=== PATIENT | male | born 1970 | race Caucasian/White ===

== ENCOUNTER 2018-09-11 09:49 | Inpatient (IN) | payer OTHER, SELFPAY ==
[2018-09-11] VITALS (16 sets, daily range): BP systolic 123–182; BP diastolic 60–100; PULSE 80–100; RESP 11–20; TEMP 36.9–39.2; O2SAT 94–98; BMI 34.4
--- NOTE | 2018-09-11 | DI.RAD.S_ITS ---
PROCEDURE: XR CHOLANGIOGRAM OPERATIVE INDICATIONS: Sepsis COMPARISON: [facility], US, US ABDOMEN COMPLETE, 09/11/2018, 10:18. FINDINGS: Biliary ducts: The surgeon injected contrast into the biliary ducts after cannulation of the cystic duct stump. Visualized intra- and extrahepatic bile ducts are normal in caliber, without strictures. No intraluminal filling defects to suggest retained ductal stones or sludge. No evidence for iatrogenic ductal injury. Duodenum: Contrast flows promptly through the sphincter of Oddi into the duodenum, which appears normal in caliber. IMPRESSION: Normal intraoperative cholangiogram. Dictated by: Denise De Jesus M.D. on 09/12/2018 at 9:00 Approved by: Denise De Jesus M.D. on 09/12/2018 at 9:01
--- NOTE | 2018-09-11 | PATH_ITS ---
[facility] Accession Number: [id number] . 01 Material submitted: . gallbladder - GALLBLADDER AND CONTENTS . 01 Clinical history: . ABD. PAIN . 02 Diagnosis: Gallbladder, Cholecystectomy: Chronic cholecystitis with cholelithiasis. No evidence of dysplasia or malignancy. MRV/09/16/2018 . 02 Electronically signed: . Mikayla Villegas MD, Pathologist NPI- [id number] . 01 Gross description: . Received in formalin, labeled gallbladder + contents, is an opened gallbladder (length-7.4 cm, diameter-3.8 cm) with andre-mcnamara smooth shiny serosa and a patent cystic duct. No lymph nodes are identified. The lumen is void of contents. The mucosa is mcnamara, smooth and flat. The wall is up to 0.1 cm thick. No nodules, masses or lesions are identified. Also submitted are multiple green smooth shiny calculi fragments (4.2 x 3.0 x 1.0 cm in aggregate) with ángela cut surfaces. Section code: (A1) cystic duct resection margin and two serial sections from the body; (A2) two longitudinal sections from the fundus. ([id number]) /MRV . 02 Pathologist provided ICD-10: K80.60 . 02 CPT . 828039 Performed at: 01 [facility] [address] [place] [address], [place], [place] [id number] MD Rey Bean MD Phone: [phone] Performed at: 02 [facility] [address] [place], [place] [id number] MD Mikayla Villegas MD Phone: [phone]
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
--- NOTE | 2018-09-11 10:02 | DI.US.S_ITS ---
PROCEDURE: US ABDOMEN COMPLETE INDICATIONS: RUQ PAIN EVAL FOR GB PATHOLOGY TECHNIQUE: Real-time scanning was performed of the abdominal and retroperitoneal organs, with image documentation. COMPARISON: None. FINDINGS: Liver: Liver is normal in size and demonstrates diffuse increased echotexture. Gallbladder: There are gallstones. A 1.6 cm gallstone is noted lodged in the gallbladder neck. The gallbladder wall is thickened measuring 5.6 cm. There is trace pericholecystic fluid or sonographic Akbar's sign. Biliary ducts: Intrahepatic bile ducts are non-dilated. Extrahepatic bile duct caliber measures 9.1 mm. Normal is 6-7 mm or less in diameter, or 10 mm or less post-cholecystectomy. Pancreas: Visualized portions of the pancreas are sonographically normal. Spleen: Spleen is normal in size and homogeneous in echotexture. Kidneys: Kidneys are normal in size and echotexture. Right kidney measures 11.1 cm long; left kidney measures 13.2 cm long. No hydronephrosis or nephrolithiasis. No solid masses. Aorta: Visualized aorta is normal in caliber at less than 3 cm. Iliacs: Proximal common iliac arteries are no visualized. IVC: Intrahepatic inferior vena cava is patent. Miscellaneous: No free abdominal fluid. IMPRESSION: 1. The ultrasound findings are compatible with acute calculus cholecystitis. 2. Dilated common bile duct. Recommend correlation with serum bilirubin for biliary obstruction. 3. Diffusely increased hepatic echotexture. This finding is most likely secondary to hepatic fatty infiltration although other hepatocellular disease may have a similar appearance. Recommend clinical correlation. Dictated by: Denise De Jesus M.D. on 09/11/2018 at 10:49 Approved by: Denise De Jesus M.D. on 09/11/2018 at 10:52
[2018-09-11] MEDS: MORPHINE 4 MG/ML INJ IV ×2 (10:13→17:48)
[2018-09-11 10:17] LABS: Add Manual Diff / Slide Review NO; Basophils Absolute Auto 100 /uL (0-100); Basophils Percent Auto 0.6 % (0-2); Eosinophils Absolute Auto 100 /uL (0-450); Eosinophils Percent Auto 0.8 % (2-4); Hematocrit 47.7 % (41-53); Lymphocytes Absolute Auto 1700 /uL (1100-4500); Lymphocytes Percent Auto 16.1 % (25-40); Mean Corpuscular HGB Conc 35.7 % (30-36); Mean Corpuscular Hemoglobin 36.2 PG (26-34); Mean Corpuscular Volume 101.3 fL (80-100); Monocytes Absolute Auto 600 /uL (0-900); Monocytes Percent Auto 5.5 % (3-14); Neutrophils Absolute Auto 8200 /uL (1500-7000); Platelet Count 221 X10^3/uL (150-400); Red Blood Cell Count 4.71 X10^6/uL (4.5-5.9); Red Cell Distribution Width 12.9 % (11.6-14.8); White Blood Cell Count 10.6 X10^3/uL (4.5-11.0)
[2018-09-11 10:32] LABS: Alanine Aminotransferase 43 IU/L (21-72); Albumin 4.4 g/dL (3.5-5.0); Albumin Globulin Ratio 1.3 (1.0-2.8); Alkaline Phosphatase 94 U/L (38-126); Aspartate Aminotransferase 50 IU/L (17-59); Bilirubin Total 0.7 mg/dL (0.2-1.3); Blood Urea Nitrogen 8 mg/dL (9-20); Calcium 9.7 mg/dL (8.4-10.2); Carbon Dioxide 28 mmol/L (22-32); Chloride 102 mmol/L (98-107); Estimated Glomerular Filt Rate > 60.0 mL/min (>60); Globulin 3.4 g/dL (1.7-4.1); Glucose 125 mg/dL (70-100); HEMOLYSIS < 15 (0-50); Lipase 109 U/L (23-300); Potassium 3.9 mmol/L (3.4-5.1); Sodium 140 mmol/L (137-145); Total Protein 7.8 g/dL (6.3-8.2)
[2018-09-11] MEDS: OXYCODONE/ACETAMINOPHEN 5/325 TABLET 1 TAB PO (11:47)
[2018-09-11] MEDS: QUETIAPINE 25 MG TABLET PO (13:46)
[2018-09-11] MEDS: MORPHINE 5 MG/ML INJ 4 MG IV (14:13)
[2018-09-11] MEDS: metroNIDAZOLE 500 MG/100 ML PIGGYBACK 100 MG IV (16:32)
[2018-09-11] MEDS: LACTATED RINGERS 1,000 ML 42 ML IV ×2 (16:36→21:46)
[2018-09-11] MEDS: CEFTRIAXONE 2 GM/50 ML FROZ.PIGGY IV (17:59)
[2018-09-11 18:03] LABS: Bacteria Urine None Seen
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
[2018-09-11 18:07] LABS: Appearance Urine UA CLEAR; Bilirubin Urine UA NEGATIVE (NEGATIVE); Color Urine UA YELLOW; Glucose Urine UA NEGATIVE (Negative); Ketones Urine UA NEGATIVE (NEGATIVE); Leukocyte Esterase Urine UA NEGATIVE (NEGATIVE); Nitrite Urine UA NEGATIVE (Negative); Occult Blood Urine UA TRACE-INTACT (Negative); Protein Urine UA NEGATIVE (Negative); Urobilinogen Urine UA 0.2 E.U./dL (0.2); pH Urine UA 6.5 (4.5-8.0)
[2018-09-11 18:18] LABS: Culture Indicated Urine Cult Not Indicated; Mucus Urine 1+ (Negative); RBC Urine 0-1/HPF (0-5/HPF); Squamous Epithelial Cell Urine 0-1 /HPF (0-5/HPF); WBC Urine 0-1/HPF (0-5/HPF)
[2018-09-11] MEDS: ACETAMINOPHEN 325 MG TABLET 650 MG PO (18:24)
--- NOTE | 2018-09-11 18:43 | PC.NURSE ---
pt A&OX3. 95%RA. pt had a temp 100.6 F, provider ordered not to give tylenol. recheck temp 102.5 F, provider aware and ordered to give tylenol PO. Pt reports 3/10 pain. 2mg of morphine given. Independent to the BR. abx infusing. call light in reach.
[2018-09-11 19:02] LABS: Prothrombin Time 11.9 SECONDS (10.1-12.7)
--- NOTE | 2018-09-11 21:01 | SUR.OPER ---
Supine on padded OR bed, head on pillow, safety belt at thigh, left arm padded and tucked at side. Right arm secured on padded arm oard <90 degrees abduction. Legs uncrossed. Padded footboard in place. Tape over blanket to secure lower legs.
[2018-09-11] MEDS: BUPIVACAINE 0.25% W/ EPI 30 ML VIAL INJ (21:17)
[2018-09-11] MEDS: IOPAMIDOL 50 ML VIAL INJ (21:18)
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
[2018-09-12] VITALS (13 sets, daily range): BP systolic 123–153; BP diastolic 55–90; PULSE 82–98; RESP 16–20; TEMP 36.7–38.2; O2SAT 94–98
--- NOTE | 2018-09-12 00:19 | PC.NURSE ---
Addendum entered by Leonora Williamson R.N. 09/12/18 02:45: Patient is alert and oriented. Breath sounds diminished but CTA with RA sat of 94%; hx of smoking. Provided incentive spirometer and instructed in use. Demonstrated understanding and was only able to get to 750. HRR. Denies nausea. BT present but denies flatus as yet. Discussed need to urinate and patient reports family assisted him to bathroom shortly after return from surgery and he voided a large amount; instructed to use urinal from now on so output can be measured. Able to turn himself in bed. Has some intermittent tingling in fingertips which is chronic. SCD's applied as per order. Fall risk score is low. Continues to deny pain. Original Note: Returned to room 215 from surgery; family in room. Patient awake and alert. Taking ice chips. Denies pain. Denies nausea. 3 lap incisions dermabonded with no signs of infection. No IVF ordered and verified with INVESTMENT ADVISORDangelo. Had catheter in surgery and was removed immediately after surgery with no void as yet. Temp slightly elevated at 99.7 and BP elevated at 153/55.
[2018-09-12] MEDS: ACETAMINOPHEN 325 MG TABLET 650 MG PO ×3 (00:31→17:59)
[2018-09-12] MEDS: metroNIDAZOLE 500 MG/100 ML PIGGYBACK 100 MG IV ×3 (00:31→16:41)
[2018-09-12] MEDS: LACTATED RINGERS 1,000 ML 75 ML IV ×2 (00:31→15:09)
[2018-09-12 08:40] LABS: Add Manual Diff / Slide Review NO; Basophils Absolute Auto 0 /uL (0-100); Basophils Percent Auto 0.4 % (0-2); Eosinophils Absolute Auto 0 /uL (0-450); Hematocrit 44.2 % (41-53); Hemoglobin 15.4 g/dL (13.5-17.5); Lymphocytes Absolute Auto 600 /uL (1100-4500); Lymphocytes Percent Auto 5.4 % (25-40); Mean Corpuscular HGB Conc 34.9 % (30-36); Mean Corpuscular Hemoglobin 35.4 PG (26-34); Mean Corpuscular Volume 101.4 fL (80-100); Monocytes Absolute Auto 700 /uL (0-900); Monocytes Percent Auto 6.7 % (3-14); Neutrophils Absolute Auto 9700 /uL (1500-7000); Neutrophils Percent Auto 87.5 % (50-75); Platelet Count 170 X10^3/uL (150-400); Red Blood Cell Count 4.35 X10^6/uL (4.5-5.9); Red Cell Distribution Width 12.9 % (11.6-14.8); White Blood Cell Count 11.1 X10^3/uL (4.5-11.0)
[2018-09-12] MEDS: OXYCODONE IR 5 MG TABLET PO (08:56)
[2018-09-12] MEDS: LACTOBACILLUS ACIDOPHILUS TABLET 1 EACH PO ×3 (08:56→17:59)
[2018-09-12] MEDS: DOCUSATE 100 MG CAPSULE PO (08:57)
[2018-09-12 09:04] LABS: BUN Creatinine Ratio 12.5 (6-22); Blood Urea Nitrogen 10 mg/dL (9-20); Calcium 9.3 mg/dL (8.4-10.2); Carbon Dioxide 27 mmol/L (22-32); Chloride 102 mmol/L (98-107); Estimated Glomerular Filt Rate > 60.0 mL/min (>60); Glucose 171 mg/dL (70-100); HEMOLYSIS < 15 (0-50); Magnesium 1.8 mg/dL (1.6-2.3); Potassium 3.8 mmol/L (3.4-5.1); Sodium 138 mmol/L (137-145)
--- NOTE | 2018-09-12 09:18 | CM.DANOTE ---
DCP: Case received, EMR reviewed and met with patient. Introduced self and role. Obtained baseline health history from patient. DCP template assessment completed with information currently available. Patient is a 47 year old male who admitted on 09-11 to the care of the surgical team. PCP: Dr. Santana. Payer: confirmed: Out of [facility]. Patient came to hospital secondary to abdominal pain. Patient holds diagnosis of acute cholecystitis with sepsis. He had a laparoscopic choleystectomy done yesterday. Met with patient in his room. Alert and oriented. Lives in [place] with his spouse, Iliana. He is currently employed at [employer]. He is independent. Verified with patient that his spouse will be available for any needs he may have when he goes home. P: DCP to continue to follow closely. Patient should be able to return home when he is medically stable. Tatiana Martinez RN/Installations Inspector
--- NOTE | 2018-09-12 09:47 | PC.NURSE ---
Addendum entered by Swati Hensley R.N. 09/12/18 14:02: PAIN/MS - pt up ambul in room, pain well managed by earlier tylenol. Original Note: AM NOTE - alert, states mild incisional discomfort 3 on scale 0/10, no nausea, bt hypo, later am did pass flatus, phuc full liq diet, ra 96%, bonded lap sites w/o redness, small area bruising, hx larger and small hernias r+L quadrants, old scarring mid abd area, 1+ pedal edema, hr reg 68, up standby br, ambul in room, dangle position, after breakfast given 5mg po oxycodone for discomfort.
--- NOTE | 2018-09-12 17:49 | P.PN_ITS ---
Subjective Date Patient Seen: 09/12/18 Time Patient Seen: 17:47 Interval history: feeling very well after acute cholecystectomy yesterday. tolerated diet ambulated not pain Exam Vital Signs (past 8 hours): - 09/12/18 13:00 09/12/18 14:07 09/12/18 15:00 Temperature 100.1 F H 99.4 F Pulse Rate 90 Respiratory Rate 16 Blood Pressure 147/89 H Pulse Oximetry 95 96 09/12/18 16:16 Temperature 100.7 F H Pulse Rate 92 H Respiratory Rate 20 Blood Pressure 140/84 Pulse Oximetry 98 Oxygen Delivery Method Room Air Oxygen Flow Rate 0 Narrative Exam Narrative: Well up walking abd soft nontender nondistended on RA Objective Labs Result Diagrams: 09/12/18 08:10 09/12/18 08:10 Labs: Laboratory Results - last 24 hr 09/11/18 09/11/18 09/12/18 10:09 18:02 08:10 WBC 11.1 H RBC 4.35 L Hgb 15.4 Hct 44.2 MCV 101.4 H MCH 35.4 H MCHC 34.9 RDW 12.9 Plt Count 170 Neut % (Auto) 87.5 H Lymph % (Auto) 5.4 L [place] % (Auto) 6.7 Eos % (Auto) 0.0 L Baso % (Auto) 0.4 Neut # (Auto) 9700 H Lymph # (Auto) 600 L [place] # (Auto) 700 Eos # (Auto) 0 Baso # (Auto) 0 PT 11.9 INR 1.0 Sodium Potassium Chloride Carbon Dioxide BUN Creatinine Estimated GFR BUN/Creatinine Ratio Glucose Calcium Magnesium Urine Color Yellow Urine Appearance Clear Urine pH 6.5 Ur Specific [place] 1.020 Urine Protein Negative Urine Glucose (UA) Negative Urine Ketones Negative Urine Occult Blood Trace-intact Urine Nitrate Negative Urine Bilirubin Negative Urine Urobilinogen 0.2 Ur Leukocyte Esterase Negative Urine RBC 0-1/hpf Urine WBC 0-1/hpf Ur Squamous Epith Cells 0-1 /hpf Urine Bacteria None seen Urine Mucus 1+ H Ur Culture Indicated? Cult not indicated 09/12/18 08:10 WBC RBC Hgb Hct MCV MCH MCHC RDW Plt Count Neut % (Auto) Lymph % (Auto) [place] % (Auto) Eos % (Auto) Baso % (Auto) Neut # (Auto) Lymph # (Auto) [place] # (Auto) Eos # (Auto) Baso # (Auto) PT INR Sodium 138 Potassium 3.8 Chloride 102 Carbon Dioxide 27 BUN 10 Creatinine 0.80 Estimated GFR > 60.0 BUN/Creatinine Ratio 12.5 Glucose 171 H Calcium 9.3 Magnesium 1.8 Urine Color Urine Appearance Urine pH Ur Specific [place] Urine Protein Urine Glucose (UA) Urine Ketones Urine Occult Blood Urine Nitrate Urine Bilirubin Urine Urobilinogen Ur Leukocyte Esterase Urine RBC Urine WBC Ur Squamous Epith Cells Urine Bacteria Urine Mucus Ur Culture Indicated? Assessment & Plan Assessment & Plan narrative: POD1 after lap nathaly for cholecystitis. IOC clean Plan Home 5 days abx due to fevers Quality VTE Deep Vein Thrombosis/Pulmonary Embolism Present on Admission: No
[2018-09-12] MEDS: CEFTRIAXONE 2 GM/50 ML FROZ.PIGGY IV (17:58)
== END 2018-09-12 19:16 | disposition home or self-care (01) | DRG 417 ==
LOC: ED 13:46 → AC 14:05
PROVIDERS: Admitting Provider Surgery; Emergency Provider Emergency Medicine; PCP Family Medicine; Visit Provider Surgery
DX: K80.00 Calculus of gallbladder with acute cholecystitis without obstruction (principal); A41.9 Sepsis, unspecified organism; F17.210 Nicotine dependence, cigarettes, uncomplicated
CPT/HCPCS: 36415; 36591; 47563; 74300; 76000; 76700; 80048; 80053; 81001; 83690; 83735; 85025; 85610; 86850; 86900; 86901; 93005; 96374; 96376; 99222; 99283; 99284; 99406; J0330; J0696; J1100; J2250; J2270; J2405; J2704; J3010

== ENCOUNTER 2025-01-13 06:58 | Inpatient (IN) | payer OTHER, SELFPAY ==
[2018-09-11 14:07] VITALS: BMI 34.4
[2025-01-13] VITALS (43 sets, daily range): BP systolic 112–210; BP diastolic 55–105; PULSE 79–120; RESP 8–29; TEMP 31–36.9; O2SAT 89–100; BMI 32.1
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
[2025-01-13 07:23] LABS: Add Manual Diff / Slide Review NO; Hematocrit 49.3 % (41-53); Hemoglobin 16.8 g/dL (13.5-17.5); Lymphocytes Absolute Auto 1500 /uL (1100-4500); Mean Corpuscular HGB Conc 34.0 % (30-36); Mean Corpuscular Hemoglobin 32.1 PG (26-34); Mean Corpuscular Volume 94.6 fL (80-100); Platelet Count 210 X10^3/uL (150-400)
[2025-01-13] MEDS: ONDANSETRON 4 MG/2 ML INJ IV (07:27)
[2025-01-13 07:31] LABS: Alanine Aminotransferase 37 IU/L (<50); Albumin 5.0 g/dL (3.5-5.0); Albumin Globulin Ratio 1.2 (1.0-2.8); Alkaline Phosphatase 94 U/L (38-126); Blood Urea Nitrogen 5 mg/dL (9-20); Calcium 9.5 mg/dL (8.4-10.2); Carbon Dioxide 25 mmol/L (22-32); Chloride 99 mmol/L (98-107); Estimated Glomerular Filt Rate > 60 mL/min (>60); Globulin 4.2 g/dL (1.7-4.1); Glucose 198 mg/dL (70-99); HEMOLYSIS 68 (0-50); Lactate (Lactic Acid) 3.6 mmol/L (0.7-2.1); Lipase 155 U/L (23-300); Potassium 3.8 mmol/L (3.4-5.1); Sodium 138 mmol/L (137-145); Total Protein 9.2 g/dL (6.3-8.2)
[2025-01-13] MEDS: SODIUM CHLORIDE 0.9% 1,000 ML 1000 ML IV ×2 (08:01→08:41)
[2025-01-13 08:23] LABS: Appearance Urine UA CLEAR; Bilirubin Urine UA NEGATIVE (NEGATIVE); Color Urine UA YELLOW; Glucose Urine UA TRACE g/dL (Negative); Ketones Urine UA TRACE (NEGATIVE); Leukocyte Esterase Urine UA NEGATIVE (NEGATIVE); Nitrite Urine UA POSITIVE (Negative); Occult Blood Urine UA NEGATIVE (Negative); Protein Urine UA 2+ (Negative); Specific Gravity Urine UA 1.015 (1.000-1.035); Urobilinogen Urine UA 1.0 E.U./dL (0.2); pH Urine UA 7.0 (4.5-8.0)
[2025-01-13 08:31] LABS: Culture Indicated Urine Specimen Cultured
[2025-01-13 08:54] LABS: Reflexed Lactate in 2 Hours Y
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
[2025-01-13 09:32] LABS: Lactate 2HR (Lactic Acid Rflx) 2.6 mmol/L (0.7-2.1)
[2025-01-13] MEDS: SODIUM CHLORIDE 0.9% 1,000 ML 125 ML IV ×2 (09:43→12:27)
[2025-01-13] MEDS: MORPHINE 4 MG/ML INJ IV ×4 (09:44→20:04)
--- NOTE | 2025-01-13 10:18 | DI.RAD.S_ITS ---
PROCEDURE: XR CHEST 1V INDICATIONS: NG tube placement TECHNIQUE: One view of the chest was acquired. COMPARISON: None. FINDINGS: Surgical changes and devices: NG tube tip is below the right hemidiaphragm and is in the expected location of distal stomach lumen. Surgical clips are seen in gallbladder fossa. Lungs and pleura: Lungs are clear. No pleural effusions or pneumothorax. Mediastinum: Mediastinal contours appear normal. Heart size is enlarged. Bones and chest wall: No suspicious bony lesions. Overlying soft tissues appear unremarkable. IMPRESSION: NG tube tip is in distal stomach lumen below the right hemidiaphragm. No focal infiltrate, pleural effusion or pneumothorax. Dictated by: Stuart Montez M.D. on 01/13/2025 at 10:47 Approved by: Stuart Montez M.D. on 01/13/2025 at 10:48
--- NOTE | 2025-01-13 11:47 | PC.NURSE ---
NS running at 125ml/hr at time of d/c to acute care floor
[2025-01-13 11:59] LABS: Lactate (Lactic Acid) 2.5 mmol/L (0.7-2.1)
--- NOTE | 2025-01-13 13:16 | PC.NURSE ---
Patient arrived from ED at 1200 pm. He has NGT in place. He is able to stand and walk several steps to transfer to bed. He reports pain 8/10 to abdomen is 8/10 pressure pain. Like it's about to pop out. MD Prieto notified for increased pain, BP also increased and per orders patient given 1 mg dilauded. Patient NGT draining bile colored liquid. He denies epigasatric discomfort or nausea. Face is flushed, slight diaphoretic. He states I've just been in pain so long.
[2025-01-13 13:27] LABS: Reflexed Lactate in 2 Hours Y
--- NOTE | 2025-01-13 13:56 | PC.NURSE ---
Patient transported to pre op area via bed with NGT
[2025-01-13 14:19] LABS: Lactate 2HR (Lactic Acid Rflx) 3.4 mmol/L (0.7-2.1)
--- NOTE | 2025-01-13 14:33 | EKG_ITS ---
[facility] [address] [place] [address] Test Date: 2025-01-13 Pat Name: Barrie Alexandra Department: [facility] Room: 210 Gender: Male Gate Tender: : 1970 Requested By: Order Number: [id number] Reading MD: Deacon Elder MD Measurements Intervals Neal Rate: 98 P: 52 VA: 164 QRS: -54 QRSD: 106 T: 22 QT: 382 QTc: 487 Interpretive Statements Normal sinus rhythm Left anterior fascicular block Minimal voltage criteria for LVH, may be normal variant ( Brent product ) Prolonged QT Electronically Signed On 01-13-2025 16:10:27 PDT by Deacon Elder MD
[2025-01-13] MEDS: LACTATED RINGERS 1,000 ML 42 ML IV (14:39)
[2025-01-13] MEDS: ACETAMINOPHEN IV 1,000 MG/100 ML VIAL 400 MG IV (14:55)
[2025-01-13] MEDS: BUPivacaine 0.25% W/ EPI (PF) 30 ML VIAL 60 ML INJ (16:16)
--- NOTE | 2025-01-13 16:17 | SUR.OPER ---
Supine on padded OR bed, head on pillow, arms secured on padded arm boards at <90 degrees abduction, legs uncrossed, safety belt at thigh, tape over blanket over lower legs. SURGEON CONFIRMED POSITIONING.
--- NOTE | 2025-01-13 16:44 | P.OP_ITS ---
Operative Date/Time/Diagnoses Date of procedure: 01/13/25 Time of procedure: 16:44 Pre-op diagnosis: Incisional hernia, incarcerated, with obstruction Post-op diagnosis: same Procedure & Clinicians Procedure: Open incisional ventral hernia repair, primary repair, 10Fr Cooper channel drain RLQ Same procedure(s) as scheduled: Yes Indications: 54yo M presented to ED with incarcerated incisional hernia containing small bowel with obstruction in RLQ. Surgeon: Adan Prieto Assisted?: Yes Electronic Resources Librarian: Rashard Glasgow Anesthesia Type: General Operative Notes Findings: Small bowel and large amount of omentum incarcerated into large hernia sac. Bowel viable, no resection needed. Closure Type: primary Specimen(s): none sent Prosthetic devices, grafts, tissues, transplants, or devices: RLQ 10Fr Cooper channel drain Applied: drain(s) Estimated Blood Loss (mL): 50 Blood products transfused: none Procedure in detail: After informed consent and satisfactory general endotracheal anesthesia, the abdomen was prepped and draped in the usual sterile manner. The patient received appropriate preoperative antibiotics and DVT prophylaxis. A Morrow catheter was placed to monitor urine output. Surgical time-out was performed with all team members in agreement. The skin incision was made with a 15 blade overlying the large hernia in the right lower quadrant in a transverse manner. We then continued through the dermis using Adson's with teeth and electrocautery on the cut setting. We then used a Angela clamp to elevate the subcutaneous tissue off of the hernia sac and divided this with cautery with excellent hemostasis. Once the hernia sac was reached we opened it between 2 hemostats and continued the hernia sac dissection with cautery over a finger to protect the underlying bowel. The bowel was edematous but not ischemic. We were able to mobilize all of the omentum and the small bowel away from the adhesions in the sac and reduce it completely. There was a significant portion of omentum that was adherent to the hernia sac and this was divided with the LigaSure device and discarded. There was no suspicious mass or other finding in the ome ntum. The large hernia sac was excised at the fascial level using the LigaSure as well with excellent hemostasis. The resulting fascial defect measured 12 cm in length. We had to extend it medially just to be able to reduce the bowel without injury. I did not want to place an intraperitoneal onlay mesh because the edematous bowel would have been in close proximity and I was concerned for any bowel mesh interaction for fistula or bowel obstruction. The hernia defect traversed the right lateral lower abdominal muscle layers and the rectus and was not amenable to a preperitoneal mesh and I was concerned for potential infection. I felt that a large onlay patch on top of the muscle would not reduce the high recurrence rate and would get infected as this large space required a drain for the inevitable seroma. In my judgment the recurrence rate is high and mesh is best preserved for a recurrent repair rather than have a recurrence complicated by mesh, particularly infected mesh. With this, the large fascial defect was closed using #1 Ethibond suture in an interrupted [id number] manner. I then tested the fascial closure with the tip of a Angela clamp and any area of fascia that would allow the tip of the Angela was reinforced with additional #1 Ethibond suture interrupted. This closed the fascia nicely. The fascia was very strong and I felt that this was the best repair that we could give him given the circumstances. With this a 10 Italian Cooper channel drain was exited through the right lower quadrant and secured to the skin with a 2-0 nylon suture. I then closed the space with 3-0 Vicryl interrupted. The skin incision was closed using skin clips. A dry sterile dressing was applied. The estimated blood loss was 50 cc. The instrument sponge and needle counts were all correct x2. The patient tolerated the procedure well and was extubated in the operating room and transported to the recovery area in stable condition. Complications: none Post-operative Condition: stable Disposition: PACU Plan for aftercare: PACU then perkins
--- NOTE | 2025-01-13 18:56 | PC.ADMIT ---
1903 Admission Note: Pt arrived to room 226 with WILDLIFE CONSERVATION PROFESSOR and RT at approximately 1850. A&Ox3, unsure of day of week. RA 90%, placed on 2L NC by RT. Denies pain. Dressing to right lower abdomen aquacell with shadow drainage, CRISTINA drain to right side. HR 110's, BP WDL. Oriented to room and call light. Care ongoing. The patient,Barrie Alexandra,54 y/o, was given written information regarding hospital policies, unit procedures and contact persons. Patient's smoking status: Current every day smoker. Vital Signs - 8 hr 01/13/25 14:13 01/13/25 17:27 01/13/25 17:33 Temperature 98.4 F 97.5 F L Pulse Rate 87 120 H 118 H Respiratory Rate 18 15 14 Blood Pressure 185/92 H 165/84 H 148/79 H Pulse Oximetry 94 97 98 Oxygen Delivery Method Room Air Simple Mask BiPAP Fraction of Inspired Oxygen 01/13/25 17:40 01/13/25 17:44 01/13/25 17:47 Temperature Pulse Rate 114 H 109 H Respiratory Rate 13 12 Blood Pressure 128/71 126/71 126/71 Pulse Oximetry 97 97 Oxygen Delivery Method BiPAP BiPAP Fraction of Inspired Oxygen 40 01/13/25 17:52 01/13/25 17:58 01/13/25 18:05 Temperature Pulse Rate 110 H 107 H 104 H Respiratory Rate 10 L 11 L 9 L Blood Pressure 133/73 119/55 L 115/64 Pulse Oximetry 97 97 98 Oxygen Delivery Method BiPAP BiPAP BiPAP Fraction of Inspired Oxygen 01/13/25 18:10 01/13/25 18:18 01/13/25 18:25 Temperature Pulse Rate 113 H 109 H 112 H Respiratory Rate 12 11 L 11 L Blood Pressure 119/71 114/67 119/62 Pulse Oximetry 98 97 98 Oxygen Delivery Method BiPAP BiPAP BiPAP Fraction of Inspired Oxygen 01/13/25 18:30 01/13/25 18:40 Temperature Pulse Rate 112 H 112 H Respiratory Rate 11 L 11 L Blood Pressure 121/70 121/70 Pulse Oximetry 98 94 Oxygen Delivery Method Room Air Fraction of Inspired Oxygen
[2025-01-13] MEDS: LACTATED RINGERS 1,000 ML 120 ML IV (20:13)
[2025-01-14] MEDS: MORPHINE 4 MG/ML INJ IV ×3 (00:08→20:00)
[2025-01-14] MEDS: LACTATED RINGERS 1,000 ML 120 ML IV (04:45)
--- NOTE | 2025-01-14 05:52 | PM.PN.IH.1 ---
Subjective Subjective Date Patient Seen: 01/14/25 Time Patient Seen: 05:52 Interval history: Stable overnight POD#1 RLQ hernia repair NG, RLQ drain with minimal output overnight Denies n/v Exam Vital Signs (past 8 hours): - 01/13/25 22:00 01/13/25 22:00 01/13/25 22:28 Pulse Rate 106 H 107 H Respiratory Rate 17 16 Blood Pressure 112/63 Pulse Oximetry 94 93 01/13/25 22:30 Pulse Rate Respiratory Rate Blood Pressure 114/63 Pulse Oximetry Fraction of Inspired Oxygen 40 Oxygen Delivery Method Nasal Cannula Oxygen Flow Rate 2 Const General: comfortable Orientation: alert and oriented x3 Resp Effort & Inspection: normal respiratory effort and able to speak in complete sentences Cardio Rate: regular rate GI Other: ABD: binder, dressing in place, tenderness appropriate for postop, RLQ drain serosang, NG with non-bloody gastric contents Extrem General: no pedal edema and no calf tenderness Objective Labs 01/13/25 07:15 01/13/25 07:15 Labs: Laboratory Results - last 24 hr 01/13/25 01/13/25 01/13/25 07:05 07:15 09:02 WBC 12.7 H RBC 5.21 Hgb 16.8 Hct 49.3 MCV 94.6 MCH 32.1 MCHC 34.0 RDW 14.2 Plt Count 210 Neut % (Auto) 81.7 H Lymph % (Auto) 12.1 L [place] % (Auto) 3.1 Eos % (Auto) 0.4 L Baso % (Auto) 2.7 H Neut # (Auto) 72029 H Lymph # (Auto) 1500 [place] # (Auto) 400 Eos # (Auto) 0 Baso # (Auto) 300 H Sodium 138 Potassium 3.8 Chloride 99 Carbon Dioxide 25 BUN 5 L Creatinine 0.62 L Estimated GFR > 60 BUN/Creatinine Ratio 8.1 Glucose 198 H Lactate 3.6 H 2.6 H Calcium 9.5 Total Bilirubin 1.3 AST 52 ALT 37 Alkaline Phosphatase 94 Total Protein 9.2 H Albumin 5.0 Globulin 4.2 H Albumin/Globulin Ratio 1.2 Lipase 155 Urine Color Yellow Urine Appearance Clear Urine pH 7.0 Ur Specific [place] 1.015 Urine Protein 2+ H Urine Glucose (UA) Trace H Urine Ketones Trace H Urine Occult Blood Negative Urine Nitrate Positive H Urine Bilirubin Negative Urine Urobilinogen 1.0 Ur Leukocyte Esterase Negative Urine RBC 0-1/hpf Urine WBC 1-5/hpf Ur Squamous Epith Cells 0-1 /hpf Urine Bacteria Few (2-10) H Ur Culture Indicated? Specimen cultured Vol Urine Centrifuged 10ml (spun) 01/13/25 01/13/25 11:15 13:50 WBC RBC Hgb Hct MCV MCH MCHC RDW Plt Count Neut % (Auto) Lymph % (Auto) [place] % (Auto) Eos % (Auto) Baso % (Auto) Neut # (Auto) Lymph # (Auto) [place] # (Auto) Eos # (Auto) Baso # (Auto) Sodium Potassium Chloride Carbon Dioxide BUN Creatinine Estimated GFR BUN/Creatinine Ratio Glucose Lactate 2.5 H 3.4 H Calcium Total Bilirubin AST ALT Alkaline Phosphatase Total Protein Albumin Globulin Albumin/Globulin Ratio Lipase Urine Color Urine Appearance Urine pH Ur Specific [place] Urine Protein Urine Glucose (UA) Urine Ketones Urine Occult Blood Urine Nitrate Urine Bilirubin Urine Urobilinogen Ur Leukocyte Esterase Urine RBC Urine WBC Ur Squamous Epith Cells Urine Bacteria Ur Culture Indicated? Vol Urine Centrifuged [facility] Medical History Smoker Surgical History Hx of exploratory laparotomy Social History household members: spouse and children Smoking Status: Current every day smoker alcohol intake: current Assessment & Plan Assessment and plan (1) Incisional hernia with bowel obstruction: Status: Acute Plan POD#1 incarcerated incisional hernia repair with SBO Bowel viable D/C NGT, vincent today Start clear liquids, no carbonation Ambulate Time-Based Coding :: [TOTAL MINUTES] spent with patient and on the chart (including review of chart, obtaining history, exam, reviewing outside data, placing orders, documenting exam and treatment plan, and counseling patient) on [DATE]. PROFEE Msw Document charge(s): Yes Charge Codes Subsequent inpatient/observation care: 56120
[2025-01-14] MEDS: PANTOPRAZOLE DR 20 MG TABLET PO (06:54)
--- NOTE | 2025-01-14 16:18 | CM.DANOTE ---
DCP Assessment note brief pt is a 54yo M POD1 hernia repair. SMALL CRAFT OPERATOR reviewed EMR. per surgeon note, remove NGT tube today, dc vincent, starting clears. advance diet as tolerated. per RN doing well on advancing diet. no anticipated DCP/CM needs at this time. per chart, pt lives indep with spouse in [place]. drives. SMALL CRAFT OPERATOR unable to meet with pt today due to triaging needs. P: anticipate dc home with family support when able to tolerate regular diet. will continue to follow as needed for DCP Coordination MATTHIEU Mcdaniel Discharge Planning/Care Management CM Discharge Assessment Start: 01/13/25 08:31 Freq: Status: Active Protocol: Document 01/14/25 16:16 SL (Rec: 01/14/25 16:18 [id number]) Discharge Planning Assessment Assigned Discharge MATTHIEU Wood Shrink Pit Operator Insurance Comment [employer] dimensions DPOA/Assigned Iliana, spouse Designee Name Contact Information [phone] Advance Directives? No History Provided By Patient,Medical Record Prior Living House Arrangements Household Members spouse,children Type of Drives own vehicle transporation used prior to admit Independent with ADL Yes 's Is patient alert and Yes oriented? Discharge Plan Home Transportation Spouse Arrangement Referrals Initiated None needed Review Status In Process Please Provide Date 01/14/25 Initial DC Assessment Was Performed Next Review Type Continued Stay Review
[2025-01-14 18:54] VITALS: BP 112/74; PULSE 111; RESP 19; TEMP 35.7; O2SAT 95
[2025-01-14 19:00] VITALS: BP 150/79; PULSE 110; RESP 18; TEMP 36.1; O2SAT 96
[2025-01-15] MEDS: MORPHINE 4 MG/ML INJ IV (05:28)
[2025-01-15] MEDS: PANTOPRAZOLE DR 20 MG TABLET PO (05:36)
[2025-01-15] MEDS: DOCUSATE 100 MG CAPSULE PO (08:29)
[2025-01-15] MEDS: MAGNESIUM HYDROXIDE 30 ML UDC PO (08:29)
--- NOTE | 2025-01-15 10:06 | PM.PN.IH.1 ---
Subjective Subjective Date Patient Seen: 01/15/25 Time Patient Seen: 10:06 Interval history: POD#2 No c/o No BM Pain controlled Exam Vital Signs (past 8 hours): Fraction of Inspired Oxygen 40 Oxygen Delivery Method Nasal Cannula Oxygen Flow Rate 0 GI Other: ABD: drsg CDI, drain serosang, tenderness appropriate for postop Objective Labs 01/13/25 07:15 01/13/25 07:15 PFSH Medical History Smoker Surgical History Hx of exploratory laparotomy Social History household members: spouse and children alcohol intake: current Assessment & Plan Assessment and plan (1) Incisional hernia with bowel obstruction: Status: Acute Plan POD#2 hernia repair Tolerating clears Advance diet Continue drain Ambulate Oral pain meds Time-Based Coding :: [TOTAL MINUTES] spent with patient and on the chart (including review of chart, obtaining history, exam, reviewing outside data, placing orders, documenting exam and treatment plan, and counseling patient) on [DATE]. PROFEE Pipe Smoking Machine Offbearer Document charge(s): Yes Charge Codes Subsequent inpatient/observation care: 72079
--- NOTE | 2025-01-15 12:16 | CM.DPC ---
DCP Cont: Per Surgeon, pt's NGT removed and on full liquids and awaiting bowel tones and likely another 1-2 days before stable for discharge. MATTHIEU Tucker
[2025-01-15 15:39] VITALS: BP 137/85; PULSE 104; RESP 16; TEMP 36.2; O2SAT 95
[2025-01-16] MEDS: PANTOPRAZOLE DR 20 MG TABLET PO (06:36)
[2025-01-16 08:00] VITALS: BP 137/77; PULSE 89; RESP 18; TEMP 36.4; O2SAT 95
[2025-01-16] MEDS: DOCUSATE 100 MG CAPSULE PO (09:14)
--- NOTE | 2025-01-16 10:28 | PM.PN.IH.1 ---
Subjective Subjective Date Patient Seen: 01/16/25 Time Patient Seen: 09:40 Interval history: Patient is sitting in a bedside chair feeling better. Patient is postop day 3.. Incisional hernia. Patient is tolerating diet. No morning laboratory. Vitals: Temperature is 97.6? pulse is 89 respirations 18 BP is 137/77 SaO2 is 95% on room air. Heart regular rate and rhythm without murmurs. Lungs are clear but diminished in the bases poor inspiratory and expiratory effort poor chest wall motion noted. Abdomen is obese soft abdominal binder is noted in place incision is clear CRISTINA is in place. No masses or peritoneal signs Impression: Postop day 3. Incisional herniorrhaphy was a recurrent hernia done by Dr. Prieto. Obesity Tobacco abuse Plan: We will discuss with Dr. Prieto about discharge whether he wants the drain left in place for follow-up in the office. Patient was given instructions on lifting stairs walking driving diet bathing exercise infectious changes wound care all questions were answered the patient's satisfaction. Discharge as per Dr. Prieto recommendations. Exam Vital Signs (past 8 hours): - 01/16/25 08:00 Temperature 97.6 F Pulse Rate 89 Respiratory Rate 18 Blood Pressure 137/77 Pulse Oximetry 95 Oxygen Flow Rate 0 Fraction of Inspired Oxygen 40 Oxygen Delivery Method Nasal Cannula Oxygen Flow Rate 0 Objective Labs 01/13/25 07:15 01/13/25 07:15 [facility] Medical History Smoker Surgical History Hx of exploratory laparotomy Social History household members: spouse and children alcohol intake: current Assessment & Plan Time-Based Coding :: [TOTAL MINUTES] spent with patient and on the chart (including review of chart, obtaining history, exam, reviewing outside data, placing orders, documenting exam and treatment plan, and counseling patient) on [DATE]. PROFEE Wire Galvanizer Document charge(s): Yes
--- NOTE | 2025-01-16 10:52 | P.DS_ITS ---
History of Present Illness History of Present Illness Date Patient Seen: 01/16/25 Time Patient Seen: 09:45 Date of Onset of Symptoms: 01/13/25 Chief complaint: Lower right side stomach pain Narrative: Patient was seen in the hospital postop day 3 for a recurrent incisional herniorrhaphy done by Dr. Prieto. The patient is sitting in the chair doing well his CRISTINA was only 15 cc recorded patient is doing well and desiring to go home. Patient's drain was removed a large amount of serous fluid was discharged after removal of the CRISTINA this was covered with a bulky bandage incision is clean and dry no signs of infection or inflammation. Patient was given normal postoperative instructions on lifting stairs walking driving diet bathing exercise infectious changes wound care. All questions were answered patient's satisfaction the patient will be discharged on oral antibiotics and also hydrocodone. All questions were answered patient's satisfaction follow up in the surgical offices for staple removal in 7-10 days or return to the emergency room if any problems questions or concerns. Discharge Providers Provider Date of admission: 01/13/25 08:26 Discharge Date: 01/16/25 Discharge provider: Arnie Croft DO Exam Vital Signs (past 8 hours): - 01/16/25 08:00 Temperature 97.6 F Pulse Rate 89 Respiratory Rate 18 Blood Pressure 137/77 Pulse Oximetry 95 Oxygen Flow Rate 0 Fraction of Inspired Oxygen 40 Oxygen Delivery Method Nasal Cannula Oxygen Flow Rate 0 Objective Labs 01/13/25 07:15 01/13/25 07:15 [facility] Medical History Smoker Surgical History Hx of exploratory laparotomy Social History household members: spouse and children alcohol intake: current Discharge Plan Discharge Plan Patient Disposition: Home Provider Discharge Comment: Patient is postop day 3. Recurrent incisional hernia discharged in improved condition Discharge orders & Medications Prescriptions: New ciprofloxacin HCl [Cipro] 250 mg tablet 250 mg PO BID Qty: 20 0RF hydrocodone-acetaminophen 5-325 mg tablet 1 tab PO Q6H PRN (Reason: pain) Qty: 10 0RF Continued omeprazole 20 mg Capsule,Delayed Release(Dr/Ec) 20 mg PO DAILY Visit Report/Discharge Packet Stand Alone Forms: Patient Portal/API, Stroke Signs & Symptoms IH PROFEE Charge Codes Discharge inpatient/observation: 34703 (Postop day 3. Recurrent incisional hernia)
--- NOTE | 2025-01-16 13:22 | PC.NURSE ---
Pt discharged home at 1300, ambulated off floor in wheelchair accompanied by family and hospital staff. IV removed, discharge teaching completed including new medications, worsening symptoms and follow up appointment. Patient left the room with all belongings.
== END 2025-01-16 13:00 | disposition home or self-care (01) | DRG 355 ==
LOC: ED 08:26 → AC 08:35 → ICU 01-14 12:14 → AC 01-14 17:42
PROVIDERS: Admitting Provider Surgery; Emergency Provider Emergency Medicine; Referring Provider Emergency Medicine; Visit Provider Surgery
PROC: 0WQF0ZZ Repair Abdominal Wall, Open Approach (ICD-10-PCS; principal; 2025-01-13 15:30)
DX: K43.0 Incisional hernia with obstruction, without gangrene (principal); F17.200 Nicotine dependence, unspecified, uncomplicated; E66.9 Obesity, unspecified; N28.89 Other specified disorders of kidney and ureter; K21.9 Gastro-esophageal reflux disease without esophagitis; Z68.32 Body mass index [BMI] 32.0-32.9, adult; Z98.890 Other specified postprocedural states
CPT/HCPCS: 36415; 71045; 74177; 80053; 81001; 83605; 83690; 85025; 87040; 87086; 93005; 93010; 94660; 96365; 96375; 96376; 99284; 99285; J0131; J0330; J0696; J1100; J1171; J2272; J2405; J2704; J3010; J7030; J7050; J7120; Q9967

== ENCOUNTER → 2025-02-03 08:45 | Outpatient (CLI) | payer OTHER, SELFPAY ==
[2025-01-13 17:44] VITALS: PULSE 110; RESP 20; O2SAT 97
[2025-01-13 20:31] VITALS: BMI 32.1
--- NOTE | 2025-02-03 08:47 | DI.CT.S_ITS ---
PROCEDURE: CT ABDOMEN RENAL PROTOCOL INDICATIONS: Right renal mass TECHNIQUE: Optional 5 mm thick noncontrast images acquired from the diaphragm to the iliac crests. After the administration of intravenous contrast, 5 mm thick images again acquired from the diaphragm to the iliac crests in the arterial and urographic phases. 5 mm thick coronal and sagittal reformats were then acquired. For radiation dose reduction, the following was used: automated exposure control, adjustment of mA and/or kV according to patient size. COMPARISON: None. FINDINGS: Image quality: Diagnostic. Kidneys and Ureters: Mostly exophytic mass with some endophytic component along the lateral margin of the right kidney measuring 9.6 x 7.8 x 8.6 cm. The mass makes contact with the adjacent liver. Renal vein is widely patent. OTHER: Lower chest: Unremarkable. Liver: Cirrhosis. Contrast timing is suboptimal for detection of hepatocellular carcinoma. No large mass identified. Patent portal vein. Gallbladder: Absent. Biliary ducts: No biliary dilation. Pancreas: No ductal dilation. Spleen: Enlarged. Adrenal Glands: 2.5 cm right adrenal nodule with mixed attenuation. Additional 2.6 cm right adrenal nodule with mixed attenuation. Stomach and Bowel: Interval presumed enterotomy. There is trace soft tissue with associated punctate focus of air measuring approximately 1.9 x 1.2 cm (series 3, image 77). Peritoneum: No abnormal intraperitoneal fluid. No free air. Ventral Wall: Right lumbar hernia. Postoperative seroma in the right lower quadrant subcutaneous tissue measuring 14.5 x 5.2 cm. Abdominal Nodes: No retroperitoneal or mesenteric adenopathy by size criteria. Vessels: Aorta and inferior vena cava are normal in size. Prior EVAR. Bones: No aggressive osseous abnormality. IMPRESSION: Mostly exophytic mass off the lateral margin of the right kidney measuring 9.6 x 7.8 x 8.6 cm. Findings represent renal cell carcinoma until proven otherwise. There is soft tissue contact with the adjacent liver, but no definite invasion. No renal vein invasion. Cirrhosis. Suboptimal contrast timing for detection of the pedis other carcinoma. No large mass identified. Patent portal vein. Interval enterotomy, with trace soft tissue containing a small focus of gas in the right lower quadrant, presumably postoperative. There are a couple of right adrenal nodules measuring up to 2.6 cm, with mixed attenuation. Findings to have the appearance of benign adrenal myelolipomas, but this needs to be confirmed with MRI to exclude metastases. Dictated by: Edgard Amador M.D. on 02/03/2025 at 16:29 Approved by: Edgard Amador M.D. on 02/03/2025 at 16:35
== END ==
LOC: CT 08:46
PROVIDERS: PCP Family Medicine; Referring Provider Family Medicine; Visit Provider Family Medicine
DX: C64.1 Malignant neoplasm of right kidney, except renal pelvis (principal); N28.89 Other specified disorders of kidney and ureter; E27.9 Disorder of adrenal gland, unspecified; K45.8 Other specified abdominal hernia without obstruction or gangrene; L76.34 Postprocedural seroma of skin and subcutaneous tissue following other procedure; K74.60 Unspecified cirrhosis of liver
CPT/HCPCS: 74170; Q9967

== ENCOUNTER 2025-02-16 07:28 | Inpatient (IN) | payer OTHER, SELFPAY ==
[2025-01-13 17:44] VITALS: PULSE 110; RESP 20; O2SAT 97
[2025-01-13 20:31] VITALS: BMI 32.1
[2025-02-16] VITALS (10 sets, daily range): BP systolic 125–176; BP diastolic 84–93; PULSE 73–102; RESP 12–18; TEMP 35.8–36.6; O2SAT 92–98; BMI 31.1
--- NOTE | 2025-02-16 07:47 | ED.ABDPAIN ---
HPI - Abdominal Pain General Chief Complaint: Abdominal Pain Stated Complaint: possible bowel obstruction 2 days Time Seen by Provider: 02/16/25 07:33 Source: patient Mode of arrival: Ambulatory History of Present Illness HPI narrative: Patient here with . Complains of right lower quadrant abdominal pain/hernia since yesterday. Patient admitted here January 13 for incisional hernia with bowel obstruction. Patient has been doing well since then. His original hernia repair was 2003. Has history of cholecystectomy. Had nausea and vomiting this morning. No fever chills. No urinary complaints. No chest pain no back pain. Patient has large hernia right lower quadrant that is not reducible. Related Data Home Medications ?Medication ?Instructions ?Recorded ?Confirmed omeprazole 20 mg capsule,delayed 20 mg PO DAILY 09/11/18 02/16/25 release Allergies Allergy/AdvReac Type Severity Reaction Status Date / Time No Known Drug Allergies Allergy Verified 02/16/25 07:39 Review of Systems Review of Systems Narrative: GENERAL: Negative chills, fatigue, malaise, fever, sweats. HEENT: Negative sinus pain, ear pain, sore throat RESPIRATORY: Negative dyspnea, cough CARDIOVASCULAR: Negative chest pain, palpitations GASTROINTESTINAL: Positive diarrhea, vomiting, nausea, abdominal pain, negative GI bleed : Negative dysuria, frequency, hematuria MUSCULOSKELETAL: Negative muscle or bony pain SKIN: Negative rash, skin lesions NEUROLOGIC: Negative weakness, numbness ROS Unobtainable: All systems reviewed & are unremarkable except as noted in HPI and below Patient History Medical History Smoker Surgical History Hx of hernia repair Hx of cholecystectomy Hx of exploratory laparotomy Social History marital status: number of children: 3 household members: spouse and children Smoking Status: Former smoker Tobacco: How many years used: 22 alcohol intake: former caffeine: Yes Type(s) of exercise: none Smoking Status: Former smoker alcohol intake frequency: 3 or more drinks per day Alcohol type: beer Exam Narrative Exam Narrative: GENERAL: in no distress, not toxic not dyspneic HEAD: Normocephalic. EYES: Pupils equal round ENT: Mucous membranes moist. NECK: Trachea midline. CARDIOVASCULAR: Regular rate and rhythm RESPIRATORY: Clear to auscultation. Breath sounds equal bilaterally. No wheezes, rales, or rhonchi. GASTROINTESTINAL: Abdomen soft, large distention right lower quadrant/hernia/mass. Non reducible. Bowel sounds are present. Tender to touch right side abdomen. Surgical scars clean dry intact. BACK: No flank tenderness. EXTREMITIES: No gross deformities. NEURO: AOx4. Clear speech SKIN: Warm and dry PSYCH: Not anxious, is cooperative Initial Vital Signs Initial Vital Signs: Vital Signs Pulse Rate 101 H 02/16/25 07:33 Blood Pressure 176/93 H 02/16/25 07:33 Pulse Oximetry 95 02/16/25 07:33 Course Orders Ordered: ED Orders 02/16/25 07:45 Complete Blood Count AUTO DIFF Stat Comprehensive Metabolic Panel Stat Lipase Stat 02/16/25 07:50 CT abdomen pelvis w con Stat Acetaminophen (Acetaminophen 325 Mg Tablet) 650 mg PO Q6H PRN PRN Reason: Fever/Mild Pain (1-3) Heparin Sodium (Porcine) (Heparin 5,000 Unit/Ml Vial) 5,000 unit SUBCUT BID MENDOZA Hydromorphone HCl (Hydromorphone 1 Mg/Ml Syringe) 1 mg IV Q2HR PRN PRN Reason: Pain, Moderate (4-6) Last Admin: 02/16/25 11:25 Dose: 1 mg Documented By: Admin: 02/16/25 07:56 Dose: 1 mg Documented By: FLNyla Hydromorphone HCl (Hydromorphone Hcl 0.5 Mg/0.5 Ml Syringe) 0.5 mg IV Q2H PRN PRN Reason: Pain, Severe (7-10) Lactated Ringer's (Lactated Ringers) 1,000 mls @ 125 mls/hr IV CONT MENDOZA Last Admin: 02/16/25 10:35 Dose: 125 mls/hr Documented By: MM Ibuprofen (Ibuprofen 400 Mg Tablet) 400 mg PO Q4H PRN PRN Reason: Pain, Mild (1-3) Morphine Sulfate (Morphine 4 Mg/Ml Inj) 3 mg IV Q2HR PRN PRN Reason: Pain, Severe (7-10) Naloxone HCl (Naloxone 0.4 Mg/Ml Vial) 0.2 mg IV Q2MIN PRN PRN Reason: Opiate Reversal Ondansetron HCl (Ondansetron 4 Mg/2 Ml Inj) 4 mg IV NOW PRN PRN Reason: Nausea And Vomiting Last Admin: 02/16/25 07:56 Dose: 4 mg Documented By: TAY Ondansetron HCl (Ondansetron 4 Mg Odt) 4 mg PO NOW PRN PRN Reason: Nausea And Vomiting Ondansetron HCl (Ondansetron 4 Mg/2 Ml Inj) 4 mg IV Q8HR PRN PRN Reason: Nausea And Vomiting Discontinued Medications Sodium Chloride (Normal Saline 0.9%) 1,000 mls @ 1,000 mls/hr IV BOLUS ONE Stop: 02/16/25 08:49 Last Infusion: 02/16/25 09:15 Dose: Infused Documented By: Admin: 02/16/25 07:55 Dose: 1,000 mls/hr Documented By: TAY Midazolam HCl (Midazolam 2 Mg/2 Ml Vial) 2 mg IV NOW ONE Stop: 02/16/25 09:16 Last Admin: 02/16/25 09:24 Dose: 2 mg Documented By: MARQUEZ Vital Signs Vital signs: Vital Signs - 8 hr 02/16/25 07:33 02/16/25 07:33 02/16/25 07:36 Temperature 97.9 F Pulse Rate 101 H 102 H Respiratory Rate 12 Blood Pressure 176/93 H 125/93 H Pulse Oximetry 95 95 Oxygen Delivery Method Room Air 02/16/25 08:08 02/16/25 08:09 02/16/25 08:09 Temperature Pulse Rate 83 82 Respiratory Rate Blood Pressure 166/87 H Pulse Oximetry 94 93 Oxygen Delivery Method 02/16/25 08:30 02/16/25 08:30 02/16/25 09:00 Temperature Pulse Rate 81 Respiratory Rate Blood Pressure 150/87 H 151/84 H Pulse Oximetry 92 Oxygen Delivery Method 02/16/25 09:00 Temperature Pulse Rate 84 Respiratory Rate Blood Pressure Pulse Oximetry 93 Oxygen Delivery Method MDM - Abdominal Pain Lab Data 02/16/25 07:45 02/16/25 07:45 Labs: Lab Results 02/16/25 Range/Units 07:45 WBC 7.2 (4.5-11.0) X10^3/uL RBC 4.81 (4.5-5.9) X10^6/uL Hgb 15.0 (13.5-17.5) g/dL Hct 43.4 (41-53) % MCV 90.3 (80-100) fL MCH 31.3 (26-34) PG MCHC 34.7 (30-36) % RDW 13.9 (11.6-14.8) % Plt Count 162 (150-400) X10^3/uL Neut % (Auto) 79.1 H (50-75) % Lymph % (Auto) 17.6 L (25-40) % Larue % (Auto) 2.5 L (3-14) % Eos % (Auto) 0.2 L (2-4) % Baso % (Auto) 0.6 (0-2) % Neut # (Auto) 5700 (6422-6130) /uL Lymph # (Auto) 1300 (9493-7690) /uL [place] # (Auto) 200 (0-900) /uL Eos # (Auto) 0 (0-450) /uL Baso # (Auto) 0 (0-100) /uL Sodium 143 (137-145) mmol/L Potassium 3.4 (3.4-5.1) mmol/L Chloride 106 (98-107) mmol/L Carbon Dioxide 20 L (22-32) mmol/L BUN 6 L (9-20) mg/dL Creatinine 0.74 (0.66-1.25) mg/dL Estimated GFR > 60 (>60) mL/min BUN/Creatinine Ratio 8.1 (6-22) Glucose 150 H (70-99) mg/dL Calcium 10.0 (8.4-10.2) mg/dL Total Bilirubin 1.5 H (0.2-1.3) mg/dL AST 30 (17-59) IU/L ALT 19 (<50) IU/L Alkaline Phosphatase 92 (38-126) U/L Total Protein 8.8 H (6.3-8.2) g/dL Albumin 4.9 (3.5-5.0) g/dL Globulin 3.9 (1.7-4.1) g/dL Albumin/Globulin Ratio 1.3 (1.0-2.8) Lipase 105 (23-300) U/L Imaging Data CT scan - abdomen/pelvis: Radiologist's Impression: [address] [address] [address] Scan Report Signed Patient: Barrie Alexandra MR#: [id number] : 1970 Acct:[id number] Age/Sex: 54 / M Date of Service: 02/16/25 Loc: ED Accession Number: [id number] Procedure: CT abdomen pelvis w con Ordering Provider: Bolivar Lopez MD PROCEDURE: CT ABDOMEN PELVIS W CON INDICATIONS: Abdominal pain TECHNIQUE: After the administration of intravenous contrast, axial sections acquired from the lung bases to the pubic symphysis. Coronal and sagittal reformats were performed. For radiation dose reduction, the following was used: automated exposure control, adjustment of mA and/or kV according to patient size. COMPARISON: [facility], CT, CT ABDOMEN PELVIS W CON, 01/13/2025, 7:37. FINDINGS: Image quality: Diagnostic. Lower Chest: No significant findings. ABDOMEN: Liver: Nodular contour of the liver. No discrete mass. Gallbladder: Cholecystectomy. Biliary ducts: Compensatory dilation of the common bile duct. Pancreas: No ductal dilation. Spleen: Mild splenomegaly. Adrenal Glands: Right adrenal nodules unchanged. Kidneys and Ureters: Large right renal mass, unchanged. No hydronephrosis. Punctate stone in the midpole left kidney. Stomach and Bowel: Abnormally dilated loops of small bowel in the right abdomen with decompressed distal loops and transition point. The proximal jejunum demonstrates circumferential wall thickening and mesenteric edema. Diverticulosis without inflammation. Normal appendix. Peritoneum: No abnormal intraperitoneal fluid. Punctate foci of air along the cecum, unchanged. Abdominal wall: Mesh repair of a right flank hernia. Fluid collection in the right anterior abdominal wall subcutaneous fat measuring approximately 14.2 x 5.3 by 7.9 centimeter in greatest dimensions. Abdominal Nodes: No retroperitoneal or mesenteric adenopathy by size criteria. Vessels: Aorto bi-iliac stent grafting. PELVIS: Pelvic Organs: Unremarkable. Bladder: Decompressed. Pelvic Nodes: No enlarged lymph nodes. Miscellaneous: No inguinal hernias are seen. Bones: No aggressive osseous abnormality. Degenerative changes of the spine IMPRESSION: 1. Small bowel obstruction near mesh repair of right abdominal wall likely due to adhesion formation with associated enteritis. 2. Trace free intraperitoneal air near the cecum, unchanged. 3. Fluid collection in the subcutaneous space superficial to the hernia mesh in, unchanged. 4. Right renal mass almost certainly malignant. 5. Indeterminate right adrenal nodules. Further evaluation with MRI recommended. Dictated by: Julius Lenz M.D. on 02/16/2025 at 8:21 Approved by: Julius Lenz M.D. on 02/16/2025 at 8:35 Chest x-ray: Radiologist's Impression: [address] [address] XRay Report Signed Patient: Barrie Alexandra MR#: [id number] : 1970 Acct:[id number] Age/Sex: 54 / M Date of Service: 02/16/25 Loc: 217-1 Accession Number: [id number] Procedure: XR chest 1V Ordering Provider: Bolivar Lopez MD PROCEDURE: XR CHEST 1V INDICATIONS: NG tube placement TECHNIQUE: One view of the chest was acquired. COMPARISON: [facility], CT, CT ABDOMEN PELVIS W CON, 02/16/2025, 8:02. [facility], CR, XR CHEST 1V, 01/13/2025, 10:17. FINDINGS: Surgical changes and devices: Subdiaphragmatic enteric tube with side port located at the gastric cardia and tip overlying the gastric body. Lungs and pleura: Lungs are clear. No pleural effusions or pneumothorax. Mediastinum: Mediastinal contours appear normal. Heart size is normal. Bones and chest wall: No suspicious bony lesions. Overlying soft tissues appear unremarkable. IMPRESSION: Subdiaphragmatic enteric tube with tip overlying the gastric body. Dictated by: Kel Alva M.D. on 02/16/2025 at 10:06 Approved by: Kel Alva M.D. on 02/16/2025 at 10:07 [facility] Narrative Medical decision making narrative: Patient here with . Complains of right lower quadrant abdominal pain/hernia since yesterday. Patient admitted here January 13 for incisional hernia with bowel obstruction. Patient has been doing well since then. His original hernia repair was 2003. Has history of cholecystectomy. Had nausea and vomiting this morning. No fever chills. No urinary complaints. No chest pain no back pain. Patient has large hernia right lower quadrant that is not reducible. MDM After history and exam, CT abdomen pelvis CBC CMP normal saline Dilaudid Zofran Differential considered: Includes but not limited to bowel obstruction incarcerated hernia Medical records reviewed: January 13, 2025 admission notes here Lab Test results independently reviewed as above. Pertinent findings: WBC 7.2 hemoglobin 15 sodium 143 potassium 3.4 bicarb 20 BUN 6 creatinine 0.74 Imaging studies independently reviewed: CT abdomen pelvis small bowel obstruction near mesh right side abdomen, unchanged fluid collection. Chest x-ray shows NG tube in gastric fundus Consultations: 9:09 a.m.. I spoke with Dr. Prieto, general surgeon, will admit patient. We will place NG tube here Re-evaluations: 9:15 a.m.. Updated patient and family results and will need admission. Surgeon will be seeing him for treatment plan. Discussion: Appropriate for admission for bowel obstruction. General surgeon has been contacted for admission. Diagnosis: Small-bowel obstruction Discharge Plan Departure Patient Disposition: Admitted As Inpatient Clinical Impression: Small bowel obstruction Admit Date/Time: 02/16/25 09:09 Admit Provider: Adan Prieto
--- NOTE | 2025-02-16 07:50 | DI.CT.S_ITS ---
PROCEDURE: CT ABDOMEN PELVIS W CON INDICATIONS: Abdominal pain TECHNIQUE: After the administration of intravenous contrast, axial sections acquired from the lung bases to the pubic symphysis. Coronal and sagittal reformats were performed. For radiation dose reduction, the following was used: automated exposure control, adjustment of mA and/or kV according to patient size. COMPARISON: [facility], CT, CT ABDOMEN PELVIS W CON, 01/13/2025, 7:37. FINDINGS: Image quality: Diagnostic. Lower Chest: No significant findings. ABDOMEN: Liver: Nodular contour of the liver. No discrete mass. Gallbladder: Cholecystectomy. Biliary ducts: Compensatory dilation of the common bile duct. Pancreas: No ductal dilation. Spleen: Mild splenomegaly. Adrenal Glands: Right adrenal nodules unchanged. Kidneys and Ureters: Large right renal mass, unchanged. No hydronephrosis. Punctate stone in the midpole left kidney. Stomach and Bowel: Abnormally dilated loops of small bowel in the right abdomen with decompressed distal loops and transition point. The proximal jejunum demonstrates circumferential wall thickening and mesenteric edema. Diverticulosis without inflammation. Normal appendix. Peritoneum: No abnormal intraperitoneal fluid. Punctate foci of air along the cecum, unchanged. Abdominal wall: Mesh repair of a right flank hernia. Fluid collection in the right anterior abdominal wall subcutaneous fat measuring approximately 14.2 x 5.3 by 7.9 centimeter in greatest dimensions. Abdominal Nodes: No retroperitoneal or mesenteric adenopathy by size criteria. Vessels: Aorto bi-iliac stent grafting. PELVIS: Pelvic Organs: Unremarkable. Bladder: Decompressed. Pelvic Nodes: No enlarged lymph nodes. Miscellaneous: No inguinal hernias are seen. Bones: No aggressive osseous abnormality. Degenerative changes of the spine IMPRESSION: 1. Small bowel obstruction near mesh repair of right abdominal wall likely due to adhesion formation with associated enteritis. 2. Trace free intraperitoneal air near the cecum, unchanged. 3. Fluid collection in the subcutaneous space superficial to the hernia mesh in, unchanged. 4. Right renal mass almost certainly malignant. 5. Indeterminate right adrenal nodules. Further evaluation with MRI recommended. Dictated by: Julius Lenz M.D. on 02/16/2025 at 8:21 Approved by: Julius Lenz M.D. on 02/16/2025 at 8:35
[2025-02-16 07:54] LABS: Add Manual Diff / Slide Review NO; Hematocrit 43.4 % (41-53); Hemoglobin 15.0 g/dL (13.5-17.5); Lymphocytes Absolute Auto 1300 /uL (1100-4500); Mean Corpuscular HGB Conc 34.7 % (30-36); Mean Corpuscular Hemoglobin 31.3 PG (26-34); Mean Corpuscular Volume 90.3 fL (80-100); Platelet Count 162 X10^3/uL (150-400)
[2025-02-16] MEDS: SODIUM CHLORIDE 0.9% 1,000 ML 1000 ML IV (07:55)
[2025-02-16] MEDS: ONDANSETRON 4 MG/2 ML INJ IV (07:56)
[2025-02-16 08:05] LABS: Alanine Aminotransferase 19 IU/L (<50); Albumin 4.9 g/dL (3.5-5.0); Albumin Globulin Ratio 1.3 (1.0-2.8); Alkaline Phosphatase 92 U/L (38-126); Blood Urea Nitrogen 6 mg/dL (9-20); Calcium 10.0 mg/dL (8.4-10.2); Carbon Dioxide 20 mmol/L (22-32); Chloride 106 mmol/L (98-107); Estimated Glomerular Filt Rate > 60 mL/min (>60); Globulin 3.9 g/dL (1.7-4.1); Glucose 150 mg/dL (70-99); HEMOLYSIS 15 (0-50); Lipase 105 U/L (23-300); Potassium 3.4 mmol/L (3.4-5.1); Sodium 143 mmol/L (137-145); Total Protein 8.8 g/dL (6.3-8.2)
--- NOTE | 2025-02-16 09:15 | DI.RAD.S_ITS ---
PROCEDURE: XR CHEST 1V INDICATIONS: NG tube placement TECHNIQUE: One view of the chest was acquired. COMPARISON: [facility], CT, CT ABDOMEN PELVIS W CON, 02/16/2025, 8:02. [facility], CR, XR CHEST 1V, 01/13/2025, 10:17. FINDINGS: Surgical changes and devices: Subdiaphragmatic enteric tube with side port located at the gastric cardia and tip overlying the gastric body. Lungs and pleura: Lungs are clear. No pleural effusions or pneumothorax. Mediastinum: Mediastinal contours appear normal. Heart size is normal. Bones and chest wall: No suspicious bony lesions. Overlying soft tissues appear unremarkable. IMPRESSION: Subdiaphragmatic enteric tube with tip overlying the gastric body. Dictated by: Kel Alva M.D. on 02/16/2025 at 10:06 Approved by: Kel Alva M.D. on 02/16/2025 at 10:07
--- NOTE | 2025-02-16 09:22 | PM.HP.IH.1 ---
History of Present Illness History of Present Illness Date Patient Seen: 02/16/25 Time Patient Seen: 18:56 Chief complaint: possible bowel obstruction 2 days Narrative: 54yo M, known to our service. H/O large incisional hernia repair (tissue repair only) 01/13/25. Patient presents to ED with n/v, CT demonstrates recurrent SBO and seroma in large hernia pocket. NG placed in ED. Admitted for management of SBO. Transition point appears to be near hernia repair. PFSH Medical History Smoker Surgical History Hx of hernia repair Hx of cholecystectomy Hx of exploratory laparotomy Social History marital status: number of children: 3 household members: spouse and children Smoking Status: Former smoker Tobacco: How many years used: 22 alcohol intake: former caffeine: Yes Type(s) of exercise: none Meds Home Medications and Allergies Home Medications ?Medication ?Instructions ?Recorded ?Confirmed ?Type omeprazole 20 mg capsule,delayed 20 mg PO DAILY 09/11/18 02/16/25 History release Allergies Allergy/AdvReac Type Severity Reaction Status Date / Time No Known Drug Allergies Allergy Verified 02/16/25 07:39 Exam Vital Signs (past 8 hours): - 02/16/25 07:33 02/16/25 07:33 02/16/25 07:36 Temperature 97.9 F Pulse Rate 101 H 102 H Respiratory Rate 12 Blood Pressure 176/93 H 125/93 H Pulse Oximetry 95 95 Oxygen Delivery Method Room Air 02/16/25 08:08 02/16/25 08:09 02/16/25 08:09 Temperature Pulse Rate 83 82 Respiratory Rate Blood Pressure 166/87 H Pulse Oximetry 94 93 Oxygen Delivery Method 02/16/25 08:30 02/16/25 08:30 02/16/25 09:00 Temperature Pulse Rate 81 Respiratory Rate Blood Pressure 150/87 H 151/84 H Pulse Oximetry 92 Oxygen Delivery Method 02/16/25 09:00 Temperature Pulse Rate 84 Respiratory Rate Blood Pressure Pulse Oximetry 93 Oxygen Delivery Method Oxygen Delivery Method Room Air Narrative Exam Narrative: Const General: healthy appearing, comfortable and no acute distress Orientation: alert and oriented x3 HENMT Ears: hearing grossly normal bilaterally Eyes Visual Griffiths: normal visual griffiths by confrontation Conjunctivae: conjunctivae normal Sclera: sclerae normal EOM: EOM intact bilaterally Resp Effort & Inspection: normal respiratory effort and able to speak in complete sentences Cardio Rate: regular rate GI Palpation: soft, non-peritoneal exam, large seroma palpable in hernia repair site Extrem General: no pedal edema and no calf tenderness Objective Labs 02/16/25 07:45 02/16/25 07:45 Labs: Laboratory Results - last 24 hr 02/16/25 07:45 WBC 7.2 RBC 4.81 Hgb 15.0 Hct 43.4 MCV 90.3 MCH 31.3 MCHC 34.7 RDW 13.9 Plt Count 162 Neut % (Auto) 79.1 H Lymph % (Auto) 17.6 L [place] % (Auto) 2.5 L Eos % (Auto) 0.2 L Baso % (Auto) 0.6 Neut # (Auto) 5700 Lymph # (Auto) 1300 [place] # (Auto) 200 Eos # (Auto) 0 Baso # (Auto) 0 Sodium 143 Potassium 3.4 Chloride 106 Carbon Dioxide 20 L BUN 6 L Creatinine 0.74 Estimated GFR > 60 BUN/Creatinine Ratio 8.1 Glucose 150 H Calcium 10.0 Total Bilirubin 1.5 H AST 30 ALT 19 Alkaline Phosphatase 92 Total Protein 8.8 H Albumin 4.9 Globulin 3.9 Albumin/Globulin Ratio 1.3 Lipase 105 Assessment & Plan Assessment and plan (1) Small bowel obstruction: Status: Acute Plan NGT NPO IVF Check and correct lytes Consider drainage seroma Possible GGC after NG decompression Consider seroma drainage if operative intervention needed for SBO, consider needle aspiration otherwise. Time-Based Coding :: [TOTAL MINUTES] spent with patient and on the chart (including review of chart, obtaining history, exam, reviewing outside data, placing orders, documenting exam and treatment plan, and counseling patient) on [DATE]. 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
[2025-02-16] MEDS: MIDAZOLAM 2 MG/2 ML VIAL IV (09:24)
--- NOTE | 2025-02-16 09:58 | PC.NURSE ---
Pt with 500ml gastric output after NG insertion
[2025-02-16] MEDS: LACTATED RINGERS 1,000 ML 125 ML IV ×2 (10:35→18:40)
[2025-02-16 18:55] LABS: Add Manual Diff / Slide Review NO; Hematocrit 37.9 % (41-53); Hemoglobin 12.9 g/dL (13.5-17.5); Lymphocytes Absolute Auto 2000 /uL (1100-4500); Mean Corpuscular HGB Conc 34.1 % (30-36); Mean Corpuscular Hemoglobin 31.1 PG (26-34); Mean Corpuscular Volume 91.2 fL (80-100); Platelet Count 130 X10^3/uL (150-400)
[2025-02-16 19:13] LABS: Blood Urea Nitrogen 6 mg/dL (9-20); Calcium 9.3 mg/dL (8.4-10.2); Carbon Dioxide 28 mmol/L (22-32); Chloride 104 mmol/L (98-107); Estimated Glomerular Filt Rate > 60 mL/min (>60); Glucose 105 mg/dL (70-99); HEMOLYSIS < 15 (0-50); Magnesium 1.2 mg/dL (1.6-2.3); Phosphorous 4.4 mg/dL (2.5-4.5); Potassium 3.3 mmol/L (3.4-5.1); Sodium 142 mmol/L (137-145)
[2025-02-16] MEDS: HEPARIN 5,000 UNIT/ML VIAL 5000 UNIT SUBCUT (20:25)
[2025-02-17] MEDS: LACTATED RINGERS 1,000 ML 125 ML IV (02:24)
[2025-02-17] MEDS: KCL 20 MEQ IN NS 1,000 ML 125 MEQ IV ×2 (06:41→16:47)
[2025-02-17] MEDS: MAGNESIUM SULFATE 2 GM/50 ML PIGGYBACK IV ×2 (06:45→08:59)
[2025-02-17 06:50] LABS: Hematocrit 37.0 % (41-53); Hemoglobin 12.7 g/dL (13.5-17.5); Mean Corpuscular HGB Conc 34.4 % (30-36); Mean Corpuscular Hemoglobin 31.2 PG (26-34); Mean Corpuscular Volume 90.8 fL (80-100); Platelet Count 114 X10^3/uL (150-400)
[2025-02-17 07:00] VITALS: BP 148/88; PULSE 73; RESP 18; TEMP 36.4; O2SAT 96
--- NOTE | 2025-02-17 07:03 | P.PN_ITS ---
Subjective Subjective Date Patient Seen: 02/17/25 Time Patient Seen: 07:03 Interval history: High NG drainage overnight, >1,000cc No flatus Requiring IV pain meds Exam Vital Signs (past 8 hours): Oxygen Delivery Method Room Air Oxygen Flow Rate 0 Const General: comfortable Resp Effort & Inspection: normal respiratory effort and able to speak in complete sentences Cardio Rate: regular rate GI Other: ABD: still distended, unchanged; seroma in hernia cavity, non-peritoneal exam Extrem General: no pedal edema and no calf tenderness Objective Labs 02/17/25 06:42 02/16/25 18:30 Labs: Laboratory Results - last 24 hr 02/16/25 02/16/25 02/17/25 07:45 18:30 06:42 WBC 7.2 6.0 5.1 RBC 4.81 4.16 L 4.08 L Hgb 15.0 12.9 L 12.7 L Hct 43.4 37.9 L 37.0 L MCV 90.3 91.2 90.8 MCH 31.3 31.1 31.2 MCHC 34.7 34.1 34.4 RDW 13.9 13.8 13.9 Plt Count 162 130 L 114 L Neut % (Auto) 79.1 H 55.8 D Lymph % (Auto) 17.6 L 32.8 [place] % (Auto) 2.5 L 8.6 Eos % (Auto) 0.2 L 2.3 Baso % (Auto) 0.6 0.5 Neut # (Auto) 5700 3400 Lymph # (Auto) 1300 2000 [place] # (Auto) 200 500 Eos # (Auto) 0 100 Baso # (Auto) 0 0 Sodium 143 142 Potassium 3.4 3.3 L Chloride 106 104 Carbon Dioxide 20 L 28 BUN 6 L 6 L Creatinine 0.74 0.83 Estimated GFR > 60 > 60 BUN/Creatinine Ratio 8.1 7.2 Glucose 150 H 105 H Calcium 10.0 9.3 Phosphorus 4.4 Magnesium 1.2 L Total Bilirubin 1.5 H AST 30 ALT 19 Alkaline Phosphatase 92 Total Protein 8.8 H Albumin 4.9 Globulin 3.9 Albumin/Globulin Ratio 1.3 Lipase 105 PFSH Medical History Smoker Surgical History Hx of hernia repair Hx of cholecystectomy Hx of exploratory laparotomy Social History marital status: number of children: 3 household members: spouse and children Smoking Status: Former smoker Tobacco: How many years used: 22 alcohol intake: former caffeine: Yes Type(s) of exercise: none Assessment & Plan Assessment and plan (1) Small bowel obstruction: Status: Acute Plan SBO Check GGC this morning Clinical high grade SBO Correcting low K, low Mg Time-Based Coding :: [TOTAL MINUTES] spent with patient and on the chart (including review of chart, obtaining history, exam, reviewing outside data, placing orders, documenting exam and treatment plan, and counseling patient) on [DATE]. Quality VTE Deep Vein Thrombosis/Pulmonary Embolism Present on Admission: No IH PROFEE Express Manager Document charge(s): Yes Charge Codes Subsequent inpatient/observation care: [id number]
[2025-02-17 07:09] LABS: Blood Urea Nitrogen 7 mg/dL (9-20); Calcium 9.5 mg/dL (8.4-10.2); Carbon Dioxide 30 mmol/L (22-32); Chloride 101 mmol/L (98-107); Estimated Glomerular Filt Rate > 60 mL/min (>60); Glucose 114 mg/dL (70-99); HEMOLYSIS < 15 (0-50); Magnesium 1.2 mg/dL (1.6-2.3); Potassium 3.4 mmol/L (3.4-5.1); Sodium 141 mmol/L (137-145)
[2025-02-17] MEDS: ONDANSETRON 4 MG/2 ML INJ IV (07:30)
[2025-02-17 07:35] VITALS: O2SAT 96
--- NOTE | 2025-02-17 08:00 | DI.RAD.S_ITS ---
PROCEDURE: XR GASTROGRAFIN CHALLENGE COMPARISON: [facility], CT, CT ABDOMEN PELVIS W CON, 02/16/2025, 8:02. INDICATIONS: SBO FINDINGS: Enteric tube terminates in the stomach. Surgical clips are noted in the right upper quadrant of the abdomen. Contrast extends from the cecum to the rectum by 4.5 hours. Probable contrast in the small bowel. Evaluation is limited by body habitus and attenuation artifacts. Lumbar degenerative disc disease. IMPRESSION: No evidence of a high-grade obstruction as evidenced by contrast in the large bowel to the rectum. Dictated by: Marguerite Acharya M.D. on 02/17/2025 at 20:25 Approved by: Marguerite Acharya M.D. on 02/17/2025 at 20:27
[2025-02-17] MEDS: POTASSIUM CHLORIDE IN WATER 10 MEQ/100 ML PIGGYBACK 75 MEQ IV ×2 (09:00→11:18)
[2025-02-17] MEDS: HEPARIN 5,000 UNIT/ML VIAL 5000 UNIT SUBCUT ×2 (09:05→20:34)
--- NOTE | 2025-02-17 12:13 | CM.DANOTE ---
DCP Assessment note pt is a 54yo M admitted with SBO followed by surgical team. 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 here a month ago for hernia repair. discharged home with spouse support and no DCP needs. lives indep with spouse in [place]. per RN, SBO resolving. no new needs identified at this time. 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 P: anticipate return home with spouse support and OP f/u as needed. 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 No History Provided By Patient,Medical Record Prior Living House Arrangements Household Members spouse,children Type of Drives own vehicle transporation used prior to admit Independent with ADL Yes 's Is patient alert and Yes oriented? Barriers to No Discharge Discharge Plan Home Transportation Spouse Arrangement Referrals Initiated None needed Review Status In Process Please Provide Date 02/17/25 Initial DC Assessment Was Performed Next Review Type Continued Stay Review
[2025-02-17 15:45] LABS: Magnesium 2.0 mg/dL (1.6-2.3)
[2025-02-17 15:52] VITALS: BP 152/82; PULSE 72; RESP 16; TEMP 36.6; O2SAT 97
--- NOTE | 2025-02-17 16:08 | DIET.CONS ---
Dietary Consultation Note Admission Date: 02/16/2025 09:09 Assessment: 54 y M admitted for SBO. Dietitian screened for MNA score. Met with pt at bedside. Reports quit alcohol 1 month ago and lost weight related to that. But during that time was still eating his normal regular sized meals 3x/d + multiple snacks daily. Has only been 3 days NPO, before then was eating normally. Pt reports he currently has an appetite. NFPE with no findings. Ht: 181.61 cm Wt: 107 kg BMI: 31.1 UBW: 260# is UBW Last BM: 02/17/25 (02/17/25 12:54) MNA: 8 Dalton Score: 23 Diet: 02/16/25 09:13 NPO Diet Diet Modifications: NPO Type: NPO except for Ice Chips Labs: RBC 4.08 X10^6/uL (4.5-5.9) L 02/17/25 06:42 Hgb 12.7 g/dL (13.5-17.5) L 02/17/25 06:42 Hct 37.0 % (41-53) L 02/17/25 06:42 Creatinine 0.75 mg/dL (0.66-1.25) 02/17/25 06:42 Nutrition Diagnosis: Unintentional weight loss r/t decrease in excess calories from alcohol aeb pt reports he stopped drinking beer Interventions: Monitor days npo, no further interventions needed Monitoring/Evaluations: PO intakes when diet advanced Electronically Signed by: Rima Patel 02/17/25 16:08 Clinical Dietitian [address] [id number]
--- NOTE | 2025-02-17 18:41 | PC.NURSE ---
Assumed care of pt at 1745. Per guillermo Ledbetter to hook NG to suction. If <1,000mL in 30 mins, take NG out and clear liquid diet, no carbonation. NG output 150mL after 30 mins. NG taken out. Pt tolerating ice chips and small sips of water. Care ongoing.
[2025-02-17 19:00] VITALS: O2SAT 97
[2025-02-17 23:00] VITALS: BP 155/90; PULSE 71; RESP 16; TEMP 36.3; O2SAT 94
[2025-02-18] MEDS: KCL 20 MEQ IN NS 1,000 ML 125 MEQ IV (00:31)
[2025-02-18 06:21] LABS: Hematocrit 35.2 % (41-53); Hemoglobin 12.1 g/dL (13.5-17.5); Mean Corpuscular HGB Conc 34.4 % (30-36); Mean Corpuscular Hemoglobin 31.2 PG (26-34); Mean Corpuscular Volume 90.8 fL (80-100); Platelet Count 102 X10^3/uL (150-400)
[2025-02-18 06:32] LABS: Blood Urea Nitrogen 6 mg/dL (9-20); Calcium 8.7 mg/dL (8.4-10.2); Carbon Dioxide 26 mmol/L (22-32); Chloride 107 mmol/L (98-107); Estimated Glomerular Filt Rate > 60 mL/min (>60); Glucose 104 mg/dL (70-99); HEMOLYSIS < 15 (0-50); Magnesium 1.8 mg/dL (1.6-2.3); Potassium 3.7 mmol/L (3.4-5.1); Sodium 142 mmol/L (137-145)
[2025-02-18 07:00] VITALS: BP 134/76; PULSE 62; RESP 18; TEMP 36.3; O2SAT 96
--- NOTE | 2025-02-18 07:07 | PM.PN.IH.1 ---
Subjective Subjective Date Patient Seen: 02/18/25 Time Patient Seen: 07:08 Interval history: NG out yesterday Gastrografin in colon quickly No n/v tolerated clear liquids Liquid BMs Exam Vital Signs (past 8 hours): Oxygen Delivery Method Room Air Oxygen Flow Rate 0 Narrative Exam Narrative: Const General: healthy appearing, comfortable and no acute distress Orientation: alert and oriented x3 Resp Effort & Inspection: normal respiratory effort and able to speak in complete sentences Cardio Rate: regular rate GI Palpation: soft, non-peritoneal, less distended Extrem General: no pedal edema and no calf tenderness Objective Labs 02/18/25 05:13 02/18/25 05:13 Labs: Laboratory Results - last 24 hr 02/17/25 02/17/25 02/17/25 06:42 11:08 14:49 WBC RBC Hgb Hct MCV MCH MCHC RDW Plt Count Sodium 141 Potassium 3.4 Chloride 101 Carbon Dioxide 30 BUN 7 L Creatinine 0.75 Estimated GFR > 60 BUN/Creatinine Ratio 9.3 Glucose 114 H POC Whole Bld Glucose 109 H Calcium 9.5 Magnesium 1.2 L 2.0 02/17/25 02/18/25 15:56 05:13 WBC 4.4 L RBC 3.87 L Hgb 12.1 L Hct 35.2 L MCV 90.8 MCH 31.2 MCHC 34.4 RDW 13.8 Plt Count 102 L Sodium 142 Potassium 3.7 Chloride 107 Carbon Dioxide 26 BUN 6 L Creatinine 0.69 Estimated GFR > 60 BUN/Creatinine Ratio 8.7 Glucose 104 H POC Whole Bld Glucose 105 H Calcium 8.7 Magnesium 1.8 PFSH Medical History Smoker Surgical History Hx of hernia repair Hx of cholecystectomy Hx of exploratory laparotomy Social History marital status: number of children: 3 household members: spouse and children Smoking Status: Former smoker Tobacco: How many years used: 22 alcohol intake: former caffeine: Yes Type(s) of exercise: none Assessment & Plan Assessment and plan (1) Small bowel obstruction: Status: Acute Plan Resolving SBO Advance diet as tolerated Consider drain placement for seroma this admission vs outpatient Time-Based Coding :: [TOTAL MINUTES] spent with patient and on the chart (including review of chart, obtaining history, exam, reviewing outside data, placing orders, documenting exam and treatment plan, and counseling patient) on [DATE]. Quality VTE Deep Vein Thrombosis/Pulmonary Embolism Present on Admission: No [facility] PROFEE Director Compensation Document charge(s): Yes Charge Codes Subsequent inpatient/observation care: [id number]
[2025-02-18 07:55] VITALS: O2SAT 96
--- NOTE | 2025-02-18 10:50 | CM.DPC ---
DCP note SEAMAN reviewed EMR per RN, potentially dc later this afternoon if can tolerate a diet appropriately. NG tube out. per provider, dc today vs tomorrow. no new needs identified at this time. P: dc home when diet tolerated, spouse support and OP f/u recommended. no identified barriers to safe dc home will continue to follow as needed Nina Kahn, MATTHIEU
[2025-02-18] MEDS: IBUPROFEN 400 MG TABLET PO (12:24)
[2025-02-18] MEDS: ACETAMINOPHEN 325 MG TABLET 650 MG PO (12:24)
[2025-02-18 15:00] VITALS: BP 141/85; PULSE 66; RESP 18; TEMP 36.5; O2SAT 98
--- NOTE | 2025-02-18 15:39 | PM.DS.IH.1 ---
History of Present Illness History of Present Illness Date Patient Seen: 02/18/25 Time Patient Seen: 15:39 Chief complaint: possible bowel obstruction 2 days Narrative: 54yo M, known to our service. H/O large incisional hernia repair (tissue repair only) 01/13/25. Patient presents to ED with n/v, CT demonstrates recurrent SBO and seroma in large hernia pocket. NG placed in ED. Admitted for management of SBO. Transition point appears to be near hernia repair. Discharge Providers Provider Date of admission: 02/16/25 09:09 Discharge Date: 02/18/25 Primary care physician: Shane Norman MD Discharge provider: Adan Prieto MD Summary Hospital Course Discharge Diagnosis: Small bowel obstruction Hospital Course: Patient presented through the emergency room with a small-bowel obstruction. He is known to our service after an open repair of a large hernia in his right lower quadrant. He also has a seroma in the space left from the hernia. He had a drain postoperatively but his seroma has accumulated. He was admitted with a nasogastric tube which initially had high output. His Gastrografin challenge the next day showed contrast in the colon very quickly. The nasogastric tube was discontinued and he tolerated a clear liquid diet and this was advanced to regular without nausea or vomiting. He continued to have bowel activity. He was discharged home in stable condition. Activity and dietary instructions were given. He will follow up in the office as an outpatient regarding treatment of his seroma. Status at Discharge Cognitive/behavioral status at discharge: oriented Functional status at discharge: independent ambulation Overall status at discharge: patient is progressing back to baseline Time Spent with Patient Time spent: Greater than 30 minutes Exam Vital Signs (past 8 hours): - 02/18/25 07:55 02/18/25 15:00 Temperature 97.7 F Pulse Rate 66 Respiratory Rate 18 Blood Pressure 141/85 H Pulse Oximetry 96 98 Oxygen Delivery Method Room Air Oxygen Flow Rate 0 Oxygen Delivery Method Room Air Oxygen Flow Rate 0 Const General: comfortable Resp Effort & Inspection: normal respiratory effort and able to speak in complete sentences Cardio Rate: regular rate GI Other: Soft, less distended, non-tender; large seroma in RLQ stable and non-tender Objective Labs 02/18/25 05:13 02/18/25 05:13 Labs: Laboratory Results - last 24 hr 02/17/25 02/17/25 02/18/25 14:49 15:56 05:13 WBC 4.4 L RBC 3.87 L Hgb 12.1 L Hct 35.2 L MCV 90.8 MCH 31.2 MCHC 34.4 RDW 13.8 Plt Count 102 L Sodium 142 Potassium 3.7 Chloride 107 Carbon Dioxide 26 BUN 6 L Creatinine 0.69 Estimated GFR > 60 BUN/Creatinine Ratio 8.7 Glucose 104 H POC Whole Bld Glucose 105 H Calcium 8.7 Magnesium 2.0 1.8 PFSH Medical History Smoker Surgical History Hx of hernia repair Hx of cholecystectomy Hx of exploratory laparotomy Social History marital status: number of children: 3 household members: spouse and children Smoking Status: Former smoker Tobacco: How many years used: 22 alcohol intake: former caffeine: Yes Type(s) of exercise: none Discharge Assessment & Plan Assessment and Plan Assessment: Small bowel obstruction resolved Plan of Treatment: Home today Patient aware of worrisome symptoms for which to watch F/U in office for seroma management Discharge Plan Discharge Plan Patient Disposition: Home Provider Discharge Comment: Regular diet as tolerated, stop when you feel full, no carbonation Shower and water submersion OK No activity restrictions Call office if you wish to discuss seroma management Return to ED with symptoms of GI obstruction such as vomiting or no flatus or stool Discharge orders & Medications Prescriptions: Continued omeprazole 20 mg Capsule,Delayed Release(Dr/Ec) 20 mg PO DAILY Follow up/Referrals: Shane Norman MD [Primary Care Provider, Family Practice] Adan Prieto MD [Physician, General Surgery] Diet/Activity/Treatments Diet: Diet as Tolerated Skin/Wound/Dressing Care Report to your healthcare provider any signs of infection, such as:: chills, fever, night sweats and increased pain Visit Report/Discharge Packet Stand Alone Forms: Patient Portal/API, Stroke Signs & Symptoms Discharge Data Primary Care Provider: Shane Norman Quality VTE Deep Vein Thrombosis/Pulmonary Embolism Present on Admission: No [facility] PROFEE Charge Codes Discharge inpatient/observation: [id number]
--- NOTE | 2025-02-18 16:33 | PC.NURSE ---
Pt is dressed and ready for discharge home with Spouse. IV has been removed. Went over d/c instructions with Pt and Spouse-discussed d/c meds, time of last dose, reviewed stroke education, encouraged Pt to drink plenty of fluids to prevent constipation or dehydration and to avoid hard to digest foods and opt for a low fiber diet. Reminded Pt to watch for signs of a recurring bowel obstruction-bloating, no passing of gas, and pain and come to the ER if that occurs. Pt denied further questions and was taken out via w/c by [employer] to pov with Spouse and all belongings.
== END 2025-02-18 16:40 | disposition home or self-care (01) | DRG 389 ==
LOC: ED 07:44 → AC 09:10
PROVIDERS: Admitting Provider Surgery; Emergency Provider Emergency Medicine; PCP Family Medicine; Referring Provider Emergency Medicine; Visit Provider Surgery
DX: K56.609 Unspecified intestinal obstruction, unspecified as to partial versus complete obstruction (principal); K91.872 Postprocedural seroma of a digestive system organ or structure following a digestive system procedure; E87.6 Hypokalemia; E83.42 Hypomagnesemia; Z90.49 Acquired absence of other specified parts of digestive tract; Z87.891 Personal history of nicotine dependence
CPT/HCPCS: 36415; 71045; 74018; 74177; 80048; 80053; 82962; 83690; 83735; 84100; 85025; 85027; 96361; 96374; 96375; 99284; 99285; J1171; J1644; J2250; J2405; J3475; J7030; J7120; Q9967